=== PATIENT | female | born 1940 | race Hispanic/Latino ===

== ENCOUNTER 2024-02-08 13:57 | Outpatient (CLI) | payer OTHER, SELFPAY | END 2024-02-08 13:58 | disposition home or self-care (01) | LOC: ANHAUDIO 13:57 | PROVIDERS: PCP Physician Assistant Medical; Visit Provider Physician Assistant Medical | DX: H90.3 Sensorineural hearing loss, bilateral (principal) | CPT/HCPCS: 92553; 92555; 92567 ==

== ENCOUNTER 2025-01-30 16:23 | Emergency (ER) | payer OTHER, SELFPAY ==
--- NOTE | ~2025-01-30 | XR_ITS ---
XR finger 4th LT min 2V Ordering provider: Dominik Franco APRN History: . distal pain LT 4th digit, slammed in car door 4 days ago . Comparison: None. FINDINGS: BONES: Fracture in the midshaft of the distal phalanx of the left fourth finger. Osteopenia of the batool judy. Small bony fragment is seen opposite the distal interphalangeal joint which may be a avulsion fr acture. JOINT SPACES: Narrowing of the proximal and distal interphalangeal joints. SOFT TISSUES: Normal. IMPRESSION: Fracture in the midshaft of the distal phalanx of the fourth finger. No displacement. Possible avulsion fracture of the distal interphalangeal joint medially. Reviewed, dictated and finalized at location A. IMPRESSION: Fracture in the midshaft of the distal phalanx of the fourth finger. No displac ement. Possible avulsion fracture of the distal interphalangeal joint medially.
[2025-01-30 16:30] VITALS: BP 127/82; PULSE 84; RESP 16; TEMP 36.3; O2SAT 96
--- NOTE | 2025-01-30 16:45 | ED_ITS ---
HPI - Extremity Injury (Upper) General Chief Complaint: Extremity Injury, Upper Stated Complaint: left finger smashed in car door Time Seen by Provider: 01/30/25 16:27 Source: patient, family and RN notes reviewed Mode of arrival: ambulatory Limitations: no limitations and language barrier (Daughter speaks Faroese) History of Present Illness HPI narrative: 84-year-old female presents Express Care complaining of left ring finger injury approximately 4 days ago. Patient slammed her left ring finger in a car door approximately 4 days ago. Patient did not go seek medical attention with the injury occurred. Patient reports pain at the distal part of her left ring finger along with bruising and a wound. Patient does not believe her tetanus is up-to-date. Patient denies any numbness or tingling, exudate, fevers, body aches, chills, or any other symptoms. Related Data Home Medications ?Medication ?Instructions ?Recorded ?Confirmed ?Last Taken ?Type amlodipine 10 mg tablet mg 01/30/25 Unknown History atorvastatin 40 mg tablet mg 01/30/25 Unknown History clopidogrel 75 mg tablet mg 01/30/25 Unknown History ergocalciferol (vitamin D2) 1,250 01/30/25 Unknown History mcg (50,000 unit) capsule fluticasone propionate 50 intranasal 01/30/25 Unknown History mcg/actuation nasal spray,suspension glimepiride 2 mg tablet mg 01/30/25 Unknown History Allergies Allergy/AdvReac Type Severity Reaction Status Date / Time Penicillins Allergy Unknown Rash Verified 01/30/25 18:46 Review of Systems Review of Systems: CONSTITUTIONAL: Denies fever, chills, or sweats. EYES: Denies visual changes, redness, or discharge. ENT: Denies rhinorrhea, congestion, sore throat, or otalgia. CARDIOVASCULAR: Denies chest pain, palpitations, or edema. RESPIRATORY: Denies cough or dyspnea. GASTROINTESTINAL: Denies abdominal pain, nausea, vomiting, or diarrhea. GENITOURINARY: Denies dysuria or hematuria. SKIN: Denies rash, or itching. Positive for wound MUSCULOSKELETAL: Denies back pain, joint pain, or myalgia. Positive for left ring finger injury and swelling, bruising NEUROLOGIC: Denies headache, numbness, or weakness. PSYCHIATRIC: Denies anxiety or depression. All other systems reviewed are negative, except as documented in HPI. PMFSH Comments At the time of my signature, I reviewed and agree with the nursing past medical, surgical, social, and family history. There is no relevant family history pertinent to the patient complaint. Exam Narrative: GENERAL: This is a well-nourished, well-developed adult, in no apparent distress. They are non ill-appearing, nontoxic appearing. HEAD: normocephalic, atraumatic. EYES: Sclera clear/white. Vision is grossly intact. Conjunctiva normal. Extraocular movement intact. EARS: External ears normal Hearing grossly intact. NOSE: External nose normal THROAT: Mucous membranes moist NECK: Neck supple CARDIOVASCULAR: Regular rate and rhythm RESPIRATORY: Respiratory rate normal, respiratory effort nonlabored, no respiratory distress NEURO: awake, alert, and oriented to person, place and time. There were no obvious focal neurologic abnormalities. EXTREMITIES: Left ring finger: No obvious deformity. Distal part of left ring finger is ecchymotic with mild swelling. There is a crush injury to the dorsal surface of the distal ring finger distal to the DIP. No subungual hematoma. Bed is intact. There is full range of motion through resistance of the ring finger at the DIP, PIP, MCP. It is nontender through full range of motion. Tenderness to palpation to the distal part the ring finger. Capillary refill less than 3 seconds. Left radial Pulse 2 +palpable. Normal sensation. Neurovascular status intact distal injury. Radial and ulnar nerve distribution intact. Patient can make a fist, stop sign, okay sign, and thumbs-up sign. There is a crush injury/lacerations to the dorsal surface of the distal ring finger distal to the DIP. Laceration is linear and another 1 is angled. Both measuring approximately 1 cm long. Laceration is not approximated however it is closed through secondary intention and scabbed. BACK: Nontender without deformity. Course Course Emergency Course: Portions of this record may have been created with voice recognition software Level of Care: Express Care Visit Vital Signs Vital signs: Vital Signs Temperature 97.4 F L 01/30/25 16:30 Pulse Rate 84 01/30/25 16:30 Respiratory Rate 16 01/30/25 16:30 Blood Pressure 127/82 01/30/25 16:30 Pulse Oximetry 96 01/30/25 16:30 Oxygen Delivery Room Air 01/30/25 16:30 Temperature 97.4 F L 01/30/25 16:30 Pulse Rate 84 01/30/25 16:30 Respiratory Rate 16 01/30/25 16:30 Blood Pressure 127/82 01/30/25 16:30 Pulse Oximetry 96 01/30/25 16:30 Oxygen Delivery Room Air 01/30/25 16:30 Reviewed Procedures Orthopedic Splinting/Casting Injury #1: Splinting/Casting Date: 01/30/25 Splinting/Casting Time: 18:37 Side: left Upper Extremity Injury Location: finger (left ring finger. ) Splint: prefabricated Pre-Formed: metal foam finger splint Pre-Procedure Neuro Vascular Exam: normal Post-Procedure Neuro Vascular Exam: normal Additional Comments: Patient tolerated procedure well. MDM - Extremity Injury (Upper) MDM Narrative Medical decision making narrative: Left ring finger shows nondisplaced fracture of the distal phalanx and a probable avulsion fracture to the medial DIP. Patient's tetanus is updated t patricia. Patient wound is already closed proximally 4 days later after injury. No evidence of infection present to the fracture. Patient has type I gustilo- justino open fracture. Patient given a shot Ancef here. Patient has penicillin allergy all he had a body rash, no hives or signs of anaphylaxis. Patient observed here for approximately 60 minutes with no reaction to Ancef. Patient denies any breathing problems, wheezing, rash, swelling, or any symptoms after receiving Ancef. Wound was cleansed by nursing staff and non adherent dressing was placed over wound. Metal finger splint was placed over patient's left ring finger. Called and spoke to Dr. Arellano about patient and agreeable with this plan. He recommends treating her with cephalexin for next 5 days will follow-up with her outpatient in 3-5 days. Discussed physical exam findings. Advised supportive measures and signs/symptoms to go to the ER. Pt is appropriate for outpt treatment and f/u. Differential Diagnosis Differential diagnosis: Likely other (Finger fracture, finger sprain, crush injury, open fracture) Imaging Data Radiologist's impression: ITS Impressions Finger X-Ray 01/30/25 16:59 IMPRESSION: Fracture in the midshaft of the distal phalanx of the fourth finger. No displacement. Possible avulsion fracture of the distal interphalangeal joint medially. Critical Care Time Critical Care Time Critical Care Time: No Discharge Plan Discharge Clinical Impression: Fracture of distal phalanx of left ring finger Qualifiers: Encounter type: initial encounter Fracture type: open Fracture alignment: nondisplaced Qualified Code(s): S62.665B - Nondisplaced fracture of distal phalanx of left ring finger, initial encounter for open fracture Avulsion fracture of distal phalanx of finger Qualifiers: Encounter type: initial encounter Fracture type: open Qualified Code(s): S62.639B - Displaced fracture of distal phalanx of unspecified finger, initial encounter for open fracture Patient Disposition: Home Condition: Stable Instructions: Antibiotic Form, Finger Fracture (ED) Additional Instructions: Your x-ray today showed a open nondisplaced fracture to the distal part of your left ring finger and a possible avulsion fracture to the medial distal left ring finger joint. Wear the metal finger splint at all times. You may take it off to shower. Wash the wound daily with mild soap and water. Avoid dirty water to the wound has healed completely. Your given a shot of Ancef today prevent any infection. Tetanus is updated today. Please take the antibiotics as directed. Please follow-up with Dr. Kramer in 3-5 days. Go to the ER if he develops any worsening redness, swelling, discharge, fevers, breathing problems, rash, or any other concerns. Mejia radiograf?a de hoy mostr? donald fractura abierta sin desplazamiento en la parte distal del dedo anular lili y donald posible fractura por avulsi?n en la articulaci?n distal medial del dedo anular lili. Use la f?amie met?lica para el dedo en todo momento. Puede quit?rsela para ducharse. Lave la herida a diario con agua y jab?n suave. Evite el agua sucia hasta que la herida haya cicatrizado por completo. Le administraron donald inyecci?n de Ancef hoy para prevenir cualquier infecci?n. Hoy se actualiz? el pron?stico del t?tanos. [place] los antibi?ticos seg?n las indicaciones. Consulte con el Dr. Kramer en un plazo de 3 a 5 d?as. Acuda a urgencias si presenta enrojecimiento, hinchaz?n, secreci?n, fiebre, dificultad para respirar, sarpullido o cualquier otra inquietud que aumente. Patient Language: [place] Prescriptions: New cephalexin 500 mg capsule 500 mg PO Q6H 5 Days Qty: 20 0RF No Action atorvastatin 40 mg tablet clopidogrel 75 mg tablet glimepiride 2 mg tablet amlodipine 10 mg tablet ergocalciferol (vitamin D2) 1,250 mcg (50,000 unit) capsule fluticasone propionate 50 mcg/actuation spray,suspension INTRANASAL Follow-up/Referrals: Anabell Kramer MD [Physician] - 3 Days (open distal phalanx fracture) Aurelio,KENDY Maddox [Primary Care Provider] - Time of Disposition: 19:12
[2025-01-30] MEDS: TETANUS,DIPHTHERIA,AC PERTUSSIS ADULT (0.5 ML) BOOSTRIX IM (16:59)
[2025-01-30] MEDS: ceFAZolin SODIUM 1 GM VIAL IM (18:20)
--- NOTE | 2025-01-30 18:20 | PC.NURSE ---
Provider aware pt has PCN allergy (rash). Will give ordered Ancef IM and observe pt closely for allergic reaction prior to d/c
== END 2025-01-30 19:20 | disposition home or self-care (01) ==
PROVIDERS: PCP Physician Assistant Medical
DX: S62.665B Nondisplaced fracture of distal phalanx of left ring finger, initial encounter for open fracture (principal); W23.2XXA Caught, crushed, jammed or pinched between a moving and stationary object, initial encounter; Z23 Encounter for immunization; I10 Essential (primary) hypertension; E11.9 Type 2 diabetes mellitus without complications; E78.00 Pure hypercholesterolemia, unspecified; I65.02 Occlusion and stenosis of left vertebral artery; Z86.73 Personal history of transient ischemic attack (TIA), and cerebral infarction without residual deficits
CPT/HCPCS: 29130; 73140; 90471; 90715; 96372; 99214; G0463; J0690

== ENCOUNTER 2025-02-19 15:25 | Outpatient (CLI) | payer OTHER, SELFPAY ==
--- NOTE | ~2025-02-19 | XR_ITS ---
EXAM: XR finger 4th LT min 2V DATE: 02/19/2025 15:54 HISTORY: S62.665B - Nondisplaced fracture of distal phalanx of lef... . COMPARISON: 01/30/2025. FINDINGS: Osteopenia. Redemonstration of a transverse left fourth distal phalanx fracture, nondispla raymundo, with early healing change No new acute fracture or dislocation. No lytic or blastic lesion. Mild scattered degenerative changes. No erosion or periosteal change. Soft tissues within normal limits. IMPRESSION: Healing left fourth distal phalanx fracture. Reviewed, dictated and finalized at location K.
--- OUTSIDE RECORDS SUMMARY | 2025-02-19 15:28 | XMS_ITS | Clinical Summary ---
Author Organization [facility] Address [address] [place] [address] Care Team Providers Care Business Solution Analyst Name Role Phone Tom Carey Primary Care Provider [phone] Source Comments [facility],non-owned Affiliates and Associated Physician Practices is amultiple site organization consisting of ambulatory clinics and hospital sitesin [place], [place], [place] and [place]. This disclosure is being madepursuant to the Care Everywhere program and may not contain all information available regarding this patient. Last updated 18.[facility] Allergies Active Allergy Reactions Criticality Noted Date Comments Penicillins Rash Medium 01/24/2024 Medications * Be aware that medications may not be up to date on this document. Alwaysverify current medications with the patient. albuterol HFA (Proventil; Ventolin; Proair) 108 (90 Base) MCG/ACT inhaler Inhale 2 (two) puffs by mouth every 6 hours as needed Active atorvastatin (Lipitor) 40 MG tablet Take 1 (one) tablet by mouth at bedtime Active Lantus SoloStar pen Inject 20 units every day by subcutaneous route for 30 days. Active insulin glargine-yfgn (Semglee) pen Inject by subcutaneous route for 75 days. 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- [employer] Mixed hyperlipidemia 10/21/2023 Essential hypertension 10/20/2023 Type 2 diabetes mellitus 10/20/2023 Family History Medical History Relation Name Comments Cancer Father Cancer - Breast Sister 2 Relation Name Status Comments Brother 1 Brother 2 Brother 3 Alive Father Mother Sister 1 Sister 2 Social History Tobacco Use Types Packs/Day Years Used Date Smoking Tobacco: Never Smokeless Tobacco: Never Tobacco Cessation:Counseling Given: No Alcohol Use Standard Drinks/Week Comments Never 0 (1 standard drink = 0.6 oz pur e alcohol) Comments No Sex and Gender Information Value Date Recorded Sex Assigned at Not on file Legal Sex Female 12:27 PM CDT Gender Identity Not on file Sexual Orientation Not on file Last Filed Vital Signs Vital Sign Reading Time Taken Comments Blood Pressure 131/77 01/24/2024 2:32 PM CDT Pulse 101 01/24/2024 2:32 PM CDT Temperature 36.4 C (97.6 F) 01/24/2024 2:32 PM CDT Respiratory Rate - - Oxygen Saturation 93% 01/24/2024 2:32 PM CDT Inhaled Oxygen Concentration - - Weight 82.1 kg (181 lb) 01/24/2024 2:32 PM CDT Height - - Body Mass Index - - Plan of Treatment Upcoming Encounters Date Type Department Care Team (Late st Contact Info) Description 04/03/2025 3:00 PM CDT Office Visit [facility] - Neurology [address] [place] [address], [place] [id number] Rox Shields MD [address] [place] [address] [place] [address] Health Maintenance Due Date Last Done Comments BONE DENSITY TESTING 1942 DIABETES-SERUM CREATININE 1960 DTAP/TDAP/TD VACCINES (1 - Tdap) 1961 PNEUMOCOCCAL VACCINE 50+ (1 of 2 - PCV) 1961 ZOSTER VACCINE (1 of 2) 1992 Respiratory Syncytial Virus (RSV) Vaccine Pt: or over 60 yrs (1 - 1-dose 75+ series) 2017 DIABETES RETINOPATHY SCREENING 01/24/2024 DIABETES-FOOT EXAM WITH MONOFILAMENT 01/24/2024 DIABETES-HGB A1C 01/24/2024 COVID-19 VACCINE (1 - 2023-2 5 season) 2024 DEPRESSION SCREENING 08/16/2024 DIABETES - URINE PROTEIN SCREENING 08/16/2024 INFLUENZA VACCINE (#1) 2025 HEPATITIS B VACCINE Aged Out No longe r eligible based on patient's age to complete this topic HIB VACCINE Aged Out No longer eligi ble based on patient's age to complete this topic HPV VACCINE Aged Out No longer eligi ble based on patient's age to complete this topic MENINGOCOCCAL (Group B) VACC INE SHARED DECISION-MAKING Aged Out No longer eligibl e based on patient's age to complete this topic MENINGOCOCCAL GROUPS A/C/Y/W VACCINE Aged Out No longer eligible b ased on patient's age to complete this topic Insurance [facility] Care Teams Business Solution Analyst Relationship Specialty Start Date End Date Tom Carey [address] [place] [address] PCP - General 05/03/24
== END 2025-02-19 15:26 | disposition home or self-care (01) ==
PROVIDERS: PCP Physician Assistant Medical; Visit Provider Plastic Surgery
DX: S62.665D Nondisplaced fracture of distal phalanx of left ring finger, subsequent encounter for fracture with routine healing (principal); X58.XXXD Exposure to other specified factors, subsequent encounter
CPT/HCPCS: 73140